=== PATIENT | female | born 1940 | race Two or more races ===

== ENCOUNTER 2017-07-11 11:38 | Emergency (ER) | payer MEDICARE, MEDICAID ==
[~2017-07-11] VITALS: Ht 165.1 cm; Wt 81.6 kg
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
[2017-07-11] MEDS ORDERED: ROBAXIN-750750 MG PO (14:35)
[2017-07-11] MEDS ORDERED: IBUPROFEN600 MG ORAL (14:35)
[2017-07-11 14:52] VITALS: BP 125/68
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
== END 2017-07-11 14:50 | disposition home or self-care (01) ==
LOC: EDBD 11:38 → EMR 12:19
DX: S33.5XXA Sprain of ligaments of lumbar spine, initial encounter (principal); V43.52XA Car driver injured in collision with other type car in traffic accident, initial encounter; Y92.89 Other specified places as the place of occurrence of the external cause; I10 Essential (primary) hypertension; M40.204 Unspecified kyphosis, thoracic region
CPT/HCPCS: 72128; 72131; 99284